=== PATIENT | male | born 1950 | race African-American/Black ===

== ENCOUNTER 2016-10-13 11:31 | Inpatient (IN) ==
[2016-10-13] MEDS ORDERED: PANTOPRAZOLE 40 MG VIAL IV STA (12:11)
[2016-10-13] MEDS ORDERED: ONDANSETRON 4 MG/2 ML VIAL IV STA (12:11)
[2016-10-13] MEDS ORDERED: SODIUM CHLORIDE 0.9% 1,000 ML IV STA (12:11)
[2016-10-13] MEDS ORDERED: METOCLOPRAMIDE 10 MG/2 ML VIAL IV STA (12:13)
--- NOTE | 2016-10-13 12:15 | Emergency Department Note ---
Arrival - Arrival Chief Complaint: GI Bleed/Rectal Stated Complaint: rectal bleed ED Nursing Triage Note: C/O HAVING RECTAL BLEEDING X 3 DAYS., STATES THE BLOOD IS DARK IN COLOR., + ABD. CRAMPING , Mode of Arrival: Ambulatory Time Seen by Provider: 10/13/16 12:11 - History of Present Illness HPI Narrative: This 66-year-old black male presents with a history of 3 days of melanotic type stools associated with intermittent cramping and low-grade nausea. The patient relates a long-standing history of several years of intermittent incidents Such as this where he will have 3 days to a week of melena which spontaneously resolves; however, he was concern by the frequency and volume of melena the last 3 days precipitating his visit today. The patient denies a history of diverticulitis, peptic ulcer disease, inflammatory bowel disease, pancreatitis, gallbladder problems, or reflux. Currently he is in no discomfort and appears quite stable. Onset (ago): day(s) (patient presents 3 days post-onset of symptoms) Consistency: constant Severity: moderate Allergies/Adverse Reactions: Allergies Allergy/AdvReac Type Severity Reaction Status Date / Time No Known Allergies Allergy Verified 10/13/16 13:00 Home Medications: Home Medications Medication Instructions Recorded Confirmed Type Atorvastatin Calcium 10 mg PO DAILY 10/13/16 10/13/16 History Carvedilol 3.125 mg PO BID 10/13/16 10/13/16 History Clopidogrel [Plavix] 75 mg PO DAILY 10/13/16 10/13/16 History Divalproex Sodium [Divalproex 500 mg PO BID 10/13/16 10/13/16 History Sodium ER] Quinapril/Hydrochlorothiazide 2 each PO DAILY 10/13/16 10/13/16 History [Quinapril-Hctz 20-12.5 mg Tab] cloNIDine TAB [Catapres Tab] 0.3 mg PO BID 10/13/16 10/13/16 History hydrALAZINE TAB [Apresoline Tab] 100 mg PO TID 10/13/16 10/13/16 History Review of System - Review of System Gastrointestinal: Present: as per HPI Medical,Surgical,& Family Hx - Medical History Cardio: History of: Cardiac Dysrhythmia, Cerebrovascular Disease, Hypertension Neurology: History of: Seizures Endocrine: History of: Dyslipidemia - Social History Smoking Status: Smoker, status unknown Frequency of Alcohol Use: None Type of Drug Use: None Exam Physical Examination: GENERAL: Well developed, well nourished thyroid black male in no acute distress. HEENT: Normocephalic. No trauma. Moist mucous membranes. EOMI. PERRLA. NECK: Supple. No adenopathy. CARDIAC: Regular. No murmurs. Heart rate 68 CHEST: Clear to auscultation. No respiratory distress. O2 sat 90% ABDOMEN: Soft. Nontender. Active bowel sounds. Benign abdomen currently EXTREMITIES: No trauma. Normal ROM. No pedal edema. SKIN: No diaphoresis. No rash. NEURO: Alert. Physiologic exam No focal deficits. Vital Signs: Vital Signs Temperature 98.3 F 10/13/16 11:43 Pulse Rate 58 L 10/13/16 12:47 Respiratory Rate 20 10/13/16 12:47 Blood Pressure 97/70 10/13/16 12:47 O2 Sat by Pulse Oximetry 100 10/13/16 12:47 Course - Reevaluation(s) Reevaluation #1: Discussed with patient the need for hospitalization given his findings and depressed hematocrit. - Consultations Consultation #1: Discussed with hospitalist service who will admit for further evaluation and treatment. Results - Labs CBC & BMP: 10/13/16 12:28 10/13/16 12:28 Labs: I have reviewed the laboratory noted the severely depressed hematocrit but otherwise grossly normal results. - Impressions EKG: Sinus bradycardia at 51 with normal WI interval and prolonged QT interval. Nonspecific ST changes. No acute injury pattern noted. - Diagnostic Findings Procedure: CT Abdomen and Pelvis: image reviewed by me, report reviewed by me ( bilateral renal cysts otherwise unremarkable) Disposition Clinical Impression: gastrointestinal hemorrhage, anemia Case discussed with: patient, patient's family Disposition: Still a Patient Condition: Guarded Time of Disposition: 14:20
[2016-10-13 12:41] LABS: Basophils % 0.2 % (0.0-0.8); Eosinophils # 0.2 10*3/uL (0.0-0.87); Eosinophils % 2.1 % (0.00-10.9); Hematocrit 22.9 VOL% (42.0-52.0); Hemoglobin 7.5 GM/DL (14.0-18.0); Immature Granulocytes % 0.3 %; Immature Granulocytes Absolute 0.03 #; Lymphocytes # 2.7 10*3/uL (1.4-4.0); Lymphocytes % 26.1 % (21.2-54.2); Mean Corpuscular HGB Conc 32.8 GM/DL (32-36); Mean Corpuscular Hemoglobin 24 PG (27-34); Mean Corpuscular Volume 73.2 FL (87-102); Mean Platelet Volume 9.7 FL (9.6-12.0); Monocytes % 10.1 % (1.7-12.7); Neutrophils # 6.3 10*3/uL (1.4-7.4); Neutrophils % 61.2 % (38.7-73.9); Platelet Count 196 10*3/uL (130-400); Red Blood Count 3.13 10*6/uL (3.8-5.5); Red Cell Distribution Width 16.5 % (9.3-17.3); White Blood Count 10.3 10*3/uL (4.5-13.71)
[2016-10-13] MEDS ORDERED: METOCLOPRAMIDE 10 MG/2 ML VIAL ONE (12:41)
[2016-10-13] MEDS ORDERED: ONDANSETRON 4 MG/2 ML VIAL ONE (12:41)
[2016-10-13] MEDS ORDERED: PANTOPRAZOLE 40 MG VIAL IV ONE ×2 (12:41→16:48)
[2016-10-13 12:56] LABS: INR 1.1; PT Patient Result 11.2 SECS; Partial Thromboplastin Time 27.9 SECS (0-40)
[2016-10-13 13:12] LABS: Alanine Aminotransferase 14 U/L (16-61); Albumin 2.7 G/DL (3.4-5.0); Alkaline Phosphatase 60 U/L (45-117); Aspartate Amino Transferase 10 U/L (0-37); Bilirubin,Total < 0.39 MG/DL (0.2-1.0); Blood Urea Nitrogen 25 MG/DL (7-18); Glucose 98 MG/DL (74-106); Osmolality,Calculated 286.1 MOS/KG (273-304); Potassium 3.4 MMOL/L (3.5-5.1); Sodium 142 MMOL/L (136-145); Total Protein 5.6 G/DL (6.4-8.3); Troponin I Only < 0.015 NG/ML (0.00-0.045)
--- NOTE | 2016-10-13 14:10 | CT Report ---
History is anemia and melena 100 cc Omni 350 utilized. No focal defects seen in the liver, spleen, pancreas, or adrenals. Pancreatic duct is within normal limits in size. There are several bilateral renal cysts measuring up to 1.5 CM the right and 3.0 CM in the left No enlarged or peroneal nodes seen. Mild sclerotic changes present Bowel is unopacified Pelvis: No free fluid or focal inflammatory changes seen. What is presumably the appendix is normal in size Impression: 1. Bilateral renal cysts 2. Mild atherosclerotic changes PROCEDURE INTERPRETED AT [facility] DEPARTMENT OF RADIOLOGY Final Report Signed by: Dr. Shae Dallas
[2016-10-13] MEDS ORDERED: SODIUM CHLORIDE 0.9% 250 ML IV PRN ×2 (14:37→14:41)
[2016-10-13] MEDS ORDERED: ONDANSETRON 4 MG/2 ML VIAL IV PRN (14:37)
[2016-10-13] MEDS ORDERED: PANTOPRAZOLE INJ 80 MG in SODIUM CHLORIDE 0.9% 100 ML IV ONE (14:41)
--- NOTE | 2016-10-13 14:47 | Hospitalist History & Physical ---
Assessment and Plan - Time spent with patient Time spent with patient: Greater than 30 minutes (1) Melena Status: Acute Current Visit: Yes (2) Anemia Status: Acute Current Visit: Yes (3) Seizure disorder Status: Acute Current Visit: Yes (4) History of stroke Status: Acute Current Visit: Yes (5) Platelet inhibition due to Plavix Status: Acute Current Visit: Yes History of Present Illness Chief complaint: melena History of present illness: Mr. Morales is a 66 year old male He has history of prior stroke on Plavix therapy along with history of hypertension seizure disorder and anemia. He takes several blood pressure medications including clonidine beta khushbu beatriz inhibitors to control his blood pressure along with hydralazine. He also takes Plavix therapy since he had a stroke 2 years ago. There is a history of anemia in the past as well. He describes history of lack tarry stools usually once a week or less often but this time he started having them more frequently and had 3 large melanotic stools. That concerned him and he came to the ED. Although his heart rate is normal he has been on a beta khushbu and his blood pressure is depressed at 80 systolic. He normally has obviously pretty high blood pressure. He denies significant abdominal pain. He's mildly tender in his epigastrium but did not endorse significant pain nausea or vomiting. He does not give any history of lower GI bleed. He did have an upper and lower endoscopy 2 Years ago according to him for possibly anemia. He does not know the results. He denies chest pain shortness of breath nausea vomiting significant abdominal pain and palpitation orthopnea or PND. He does not endorse significant weight gain or weight loss. Assessment and plan 10/13/2016: Melena with anemia symptomatic Hypotension secondary to anemia History of hypertension History of stroke on Plavix therapy Seizure disorder Patient will be given 2 units of packed red cells and started on Protonix bolus with Protonix infusion. GI has been consulted as he will require an endoscopy. His continue Plavix for now. We will also hold all his blood pressure medications as he is hypotensive. Once he gets blood in his pressure improves these can be reinitiated. He does use some marijuana but denies alcohol abuse. We will continue to observe him closely. Mechanical devices will be used for DVT prophylaxis. Home Medications Medication Instructions Recorded Confirmed Type Atorvastatin Calcium 10 mg PO DAILY 10/13/16 10/13/16 History Carvedilol 3.125 mg PO BID 10/13/16 10/13/16 History Clopidogrel [Plavix] 75 mg PO DAILY 10/13/16 10/13/16 History Divalproex Sodium [Divalproex 500 mg PO BID 10/13/16 10/13/16 History Sodium ER] Quinapril/Hydrochlorothiazide 2 each PO DAILY 10/13/16 10/13/16 History [Quinapril-Hctz 20-12.5 mg Tab] cloNIDine TAB [Catapres Tab] 0.3 mg PO BID 10/13/16 10/13/16 History hydrALAZINE TAB [Apresoline Tab] 100 mg PO TID 10/13/16 10/13/16 History Allergies Allergy/AdvReac Type Severity Reaction Status Date / Time No Known Allergies Allergy Verified 10/13/16 13:00 Medical,Surgical,& Family Hx - Medical History Cardio: History of: Cardiac Dysrhythmia, Cerebrovascular Disease, Hypertension Neurology: History of: Seizures Endocrine: History of: Dyslipidemia - Surgical History Surgical History: noncontributory - Family History Family History: Reports;: Family Hypertension - Social History Smoking Status: Never smoker Frequency of Alcohol Use: None Type of Drug Use: None, Marijuana 12 point system: reviewed and no additional remarkable complaints except as stated Exam - Constitutional Vitals: Period Temp Pulse Resp BP Sys/Richard Pulse Ox Last 24 Hr 98.3 F 58-68 17-20 97-100/58-70 98-100 Exam: Gen.: In no acute distress Head and neck: Pupils are reactive neck is supple Cardiovascular: S1-S2 with regular rate and rhythm Respiratory: Lungs are clear to auscultation and percussion Abdomen: Soft, bowel sounds are positive, very minimal epigastric tenderness is noted Extremities: No edema Neuro: Grossly intact Results - Labs CBC & BMP: 10/13/16 12:28 10/13/16 12:28 Lab Results: I have reviewed the past 24 hour labs Quality Measures - VTE Contraindication to Pharmacological VTE Prophylaxis: Active Bleeding
[2016-10-13 16:59] LABS: Calcium 7.8 MG/DL (8.5-10.1); Osmolality,Calculated 290.7 MOS/KG (273-304); Potassium 3.4 MMOL/L (3.5-5.1)
--- NOTE | 2016-10-13 17:15 | Gastrointestinal Consult Note ---
Assessment and Plan - Time spent with patient Time spent with patient: Greater than 30 minutes (1) Melena Status: Acute (2) Anemia Status: Acute (3) Other specified counseling Status: Acute History of Present Illness History of present illness: Mr. Morales is a 66 year old male Home Medications Medication Instructions Recorded Confirmed Type Atorvastatin Calcium 10 mg PO DAILY 10/13/16 10/13/16 History Carvedilol 3.125 mg PO BID 10/13/16 10/13/16 History Divalproex Sodium [Divalproex 500 mg PO BID 10/13/16 10/13/16 History Sodium ER] Quinapril/Hydrochlorothiazide 2 each PO DAILY 10/13/16 10/13/16 History [Quinapril-Hctz 20-12.5 mg Tab] cloNIDine TAB [Catapres Tab] 0.3 mg PO BID 10/13/16 10/13/16 History hydrALAZINE TAB [Apresoline Tab] 100 mg PO TID 10/13/16 10/13/16 History Allergies Allergy/AdvReac Type Severity Reaction Status Date / Time No Known Allergies Allergy Verified 10/13/16 13:00 Medical,Surgical,& Family Hx - Medical History Cardio: History of: Cardiac Dysrhythmia (irregular heart beat), Cerebrovascular Disease, Hypertension Neurology: History of: Cerebrovascular Accident (2011), Seizures Endocrine: History of: Dyslipidemia No history of: Diabetes Mellitus (IDDM) Renal: History of: Renal Problems (urinary frequency) Gastrointestinal: History of: Hemorrhoids Musculoskeletal: History of: Musculoskeletal Problems (chronic lower back pain) Hematology: History of: Anemia - Family History Family History: Reports;: Family Hypertension - Social History Smoking Status: Never smoker Frequency of Alcohol Use: None Type of Drug Use: None, Marijuana Exam - Constitutional Vitals: Period Temp Pulse Resp BP Sys/Richard Pulse Ox Last 24 Hr 97.7 F-97.7 F 54-61 18-20 108-110/55-76 100-100 Results - Labs CBC & BMP: 10/17/16 04:57 10/17/16 04:57 Quality Measures - VTE Contraindication to Pharmacological VTE Prophylaxis: Active Bleeding Specialty Discharge - Follow Up or Referrals Follow up with: Bulmaro Foster DO [Physician] - 10/23/16 8:00 am Note Addendum: PLEASE NOTE -- automatic citation of patient information is unavoidable in this electronic note. I have made a reasonable effort to review the information cited , but it is not a part of my evaluation, impression, or recommendation unless specifically discussed in the dictated text that follows. As well, voice recognition software was used in the creation of this clinical note. Reasonable effort was made to identify and correct gross errors. Despite proofreading, errors in tire bladder maker may be present, including nonsense verbiage at times. If you encounter such an error, please contact me at for discussion and correction. -- Aisha Chief complaint: melena History of present illness: this is a new patient, a 66-year-old male seen by consultation for evaluation of suspected upper gastrointestinal bleeding and symptomatic anemia. The patient is admitted to the hospitalist service with a primary diagnosis of melena. The patient reports melanic stool over several weeks with increasing frequency but today reports at least three large melanic over the past couple of days. He has had no nausea or vomiting and specifically denies hematochezia. He is unaware of any past history of gastrointestinal bleeding or peptic ulcer disease. He is not a regular user of nonsteroidal anti- inflammatory drugs. He is unaware of any prior history of liver disease. He is eating and drinking normally, maintaining nutrition and hydration. Patient denies fever, chills, night sweats, rigors, headache, dizziness, neck pain, visual changes, redness of the eyes, dysphagia, odynophagia, difficulty chewing, chest pain, shortness of breath, weight loss, nausea, vomiting, regurgitation, hematemesis, diarrhea, proctalgia, constipation, dysuria, skin changes, temperature regulation issues, flushing, easy bleeding/bruising, musculoskeletal pain, mental status change, numbness/weakness in the extremities , yellowing of the eyes/skin, cutaneous eruptions, allergies to food or drug, family history of gastrointestinal cancer and colon polyps, and other complaints in general. Review of systems: 12 point review of systems was negative except as documented above. Outpatient medications: Lipitor, carvedilol, Plavix, divalproex, Quinapril/ hydrochlorothiazide, clonidine, hydralazine Inpatient medications: Lipitor, ciprofloxacin, divalproex, Zofran, Protonix, normal saline infusion Past Medical History: cardiac dysrhythmia, cerebrovascular disease hypertension , seizures, hyperlipidemia Social history: negative tobacco. Negative alcohol. Positive marijuana use Family history: no gastrointestinal cancers Physical examination: Vital Signs: Current vital signs reviewed and documented above. General Appearance: well-appearing. Not acutely ill. Head: Normocephalic. Neck: Palpation of the neck revealed no abnormalities. Eyes: No scleral icterus. No scleral injection. No conjunctival pallor. Oral Cavity: Odor of breath was normal. No drooling was observed. Lips showed no abnormalities. Floor of the mouth showed no abnormalities. Pharynx: Oropharynx was normal. Lungs: Respiration rhythm and depth was normal. Cardiovascular: Heart rate and rhythm were normal. No murmurs were appreciated. Abdomen: abdomen was not distended. Abdominal palpation revealed no tenderness and no hepatosplenomegaly. Ascites was not discovered. Abdominal auscultation revealed positive bowel sounds. Musculoskeletal System: Musculoskeletal system was grossly normal. Neurological: level of consciousness was normal. Speech was normal. Skin: General appearance was normal. Color and pigmentation were normal. No skin lesions. Laboratory: white blood count 10.3, hemoglobin 7.5, hematocrit 23.1, platelets 196, INR 1.1, PT 11.2, ALT 14, AST 10, alkaline phosphatase 60, total bilirubin 0.4, albumin 2.7, total protein 5.6 Radiology: CT of the abdomen and pelvis today reveals evidence of atherosclerotic change but no other abdominal pathology and specifically no evidence of chronic liver disease Impressions: 1. Melena -- the differential diagnosis includes peptic ulcer disease, gastritis /esophagitis generally, arteriovenous malformation, colon polyps (including cancer), and right-sided lower gastrointestinal bleeding. I recommend aggressive crystalloid resuscitation in addition to transfusion as indicated. I recommend serial hemoglobin and hematocrit monitoring with further transfusion as indicated. I recommend intravenous proton pump inhibitor. Patient will need upper endoscopy with timing dependent on clinical progress, most likely tomorrow. If there is no finding on upper endoscopy, the patient will need colonoscopy, possibly during this admission. 2. Acute blood loss anemia -- as discussed, this is likely due to gastrointestinal bleeding. I agree with transfusion and recommend continued monitoring with further transfusion as indicated. 3. Other specified counseling: The patient was seen for greater than 30 minutes. The patient was counseled for greater than 50% of this time regarding differential diagnosis, likely diagnosis, diagnostic and therapeutic alternatives, risks/benefits/alternatives of medications and procedures, and plan of care generally. The patient expressed understanding and wishes to proceed. Recommendations: -- aggressive crystalloid resuscitation -- transfusion as indicated -- serial hemoglobin and hematocrit monitoring -- agree with intravenous proton pump inhibitor -- upper endoscopy with timing dependent on clinical progress, likely Friday -- colonoscopy as indicated with timing dependent on clinical progress -- patient may need video capsule endoscopy if upper and lower endoscopy is nondiagnostic -- thank you for consultation. We will continue to follow with you.
[2016-10-13] MEDS: PANTOPRAZOLE INJ 200 MG in SODIUM CHLORIDE 0.9% 250 ML IV SCH (18:01)
[2016-10-13] MEDS: CIPROFLOXACIN INJ 400 MG in PREMIX 1 EACH IV SCH (21:09)
[2016-10-13] MEDS: DIVALPROEX ER 500 MG TABLET PO SCH (21:13)
[2016-10-13] MEDS: DEXTROSE 5% NACL 0.45% 1,000 ML IV SCH ×2 (23:08→23:09)
[2016-10-14] MEDS: DEXTROSE 5% NACL 0.45% 1,000 ML IV SCH ×2 (04:36→21:36)
--- NOTE | 2016-10-14 08:15 | EKG Report ---
Stationary ECG Study [facility] ER Test Date: 10/13/2016 12:48:34 PM Pat Name: Dewayne CANALES Department: Room: 236 Gender: M [employer]: DARIO : 1950 Requested by: Sanjay Bonds Order Number: [id number] Reading MD: CHARU FALK Intervals [place] Rate: 51 P: 69 IN: 164 QRS: 32 QRSD: 102 T: -36 QT: 489 QTc: 467 Interpretive Statements SINUS BRADYCARDIA NONSPECIFIC T-WAVE ABNORMALITY PROLONGED QT INTERVAL Electronically Signed On 10-14-16 08:48:26 CLINIC ADMINISTRATOR by CHARU FALK [email or web address]
--- NOTE | 2016-10-14 09:47 | Hospitalist Progress Note ---
Assessment and Plan (1) Acute upper gastrointestinal bleeding Status: Acute Assessment and plan: - gastroenterology consulted, patient will undergo an upper endoscopy today to evaluate for source of GI bleeding - will restart blood pressure medications if blood pressrure increases, blood pressure was low at admission - hold anticoagulants and antiplatelets - monitor blood counts serially, transfuse as needed - continue protonix infusion Current Visit: Yes (2) Acute blood loss anemia Status: Acute Current Visit: Yes (3) Melena Status: Acute Current Visit: Yes (4) Platelet inhibition due to Plavix Status: Acute Current Visit: Yes (5) Seizure disorder Status: Acute Current Visit: Yes Hospitalist: Subjective Interval history: The patient is a 66 year old male admitted to the hospital with acute blood loss anemia due to a likely upper GI bleed. The patient complains of a 3 day history of melena prior to presenting to the hospital. He was transfused two units of pRBCs yesterday. He denies any bowel movements today. He has not had any abdominal pain, nausea, vomiting or shortness of breath. The patient is scheduled to have an EGD today. Exam - Constitutional Vitals: Period Temp Pulse Resp BP Sys/Richard Pulse Ox Last 24 Hr 97.7 F-98.9 F 54-86 18-20 108-144/55-93 98-100 Exam: General appearance: chronically ill appearing male, alert - Head Head exam: Present: normal inspection - Eye Eye exam: Present: EOMI. Absent: periorbital swelling - ENT ENT exam: Present: normal exam - Neck Neck exam: Present: normal inspection - Respiratory Respiratory exam: Present: clear to auscultation bilaterally. Absent: rales, rhonchi - Cardiovascular Cardiovascular exam: Present: regular rate and rhythm. Absent: systolic murmur - GI/Abdominal GI/Abdominal exam: Present: normal bowel sounds, tenderness, soft. Absent: guarding - Extremities Exam Extremities exam: Present: normal inspection, full ROM - Back Exam Back exam: Present: normal inspection - Neurological Exam Neurological exam: Present: alert, oriented X3 - Psychiatric Psychiatric exam: Present: normal affect - Skin Skin exam: Present: normal color Results - Labs CBC & BMP: 10/14/16 15:50 10/13/16 16:18 Lab Results: I have reviewed the past 24 hour labs Quality Measures - VTE Contraindication to Pharmacological VTE Prophylaxis: Active Bleeding
[2016-10-14] MEDS: CIPROFLOXACIN INJ 400 MG in PREMIX 1 EACH IV SCH ×2 (10:50→21:46)
[2016-10-14] MEDS ORDERED: LIDOCAINE 2% 5 ML VIAL ONE (14:01)
[2016-10-14] MEDS ORDERED: PROPOFOL 200 MG/20 ML VIAL IV ONE (14:01)
--- NOTE | 2016-10-14 14:11 | History and Physical Update ---
History and Physical Update - Physical Exam Mental Status: alert and oriented Heart: regular rate and rhythm Lung: clear to auscultation Abdomen: within normal limits Vitals: within normal limits History and Physical Changes: 66-year-old male was admitted with GI bleeding with anemia. He has been having recent melena. He denies weight loss, abdominal pain or nausea.
--- NOTE | 2016-10-14 14:12 | Operative Note ---
Date of procedure: 10/14/16 Pre-op diagnosis: GI bleeding with melena Procedure: Procedure: Esophagogastroduodenoscopy Brief clinical abstract: Patient is a 66-year-old admitted with GI bleeding with melena over the last 2 or 3 days. He had hemoglobin of 7 on admission and has required transfusion of 2 units packed red blood cells. Indication for procedure: GI bleeding with melena Endoscopic findings:[After informed consent was obtained, the patient was placed in the left lateral decubitus position. The gastroscope was inserted in the upper esophagus under direct vision with no resistance encountered. Esophageal mucosa appeared normal with squamocolumnar junction sharply demarcated above a 1-2 cm hiatal hernia. The endoscope was advanced in the stomach which was carefully examined including retroflexed view of the cardia and fundus with no abnormality seen. The pyloric channel, duodenal bulb, second and third portion of the duodenum were normal. The endoscope was withdrawn and patient appeared to tolerate the procedure well. Impression: Small hiatal hernia-otherwise normal EGD Recommendations: Colonoscopy Anesthesia: MAC Surgeon / Physician: Dominguez Cottrell Estimated blood loss: none Specimens: none sent Condition: stable Disposition: post procedure unit Results - Labs CBC & BMP: 10/14/16 08:31 10/13/16 16:18 Discharge Plan - Discharge Medications No Action cloNIDine TAB [Catapres Tab] 0.3 mg PO BID Divalproex Sodium [Divalproex Sodium ER] 500 mg PO BID Carvedilol 3.125 mg PO BID Quinapril/Hydrochlorothiazide [Quinapril-Hctz 20-12.5 mg Tab] 2 each PO DAILY hydrALAZINE TAB [Apresoline Tab] 100 mg PO TID Atorvastatin Calcium 10 mg PO DAILY Clopidogrel [Plavix] 75 mg PO DAILY - Follow Up or Referral - Forms/Instructions
--- NOTE | 2016-10-14 14:22 | Anesthesia ---
Anesthesia Post OP - Post Ansesthetic Evaluation Patient seen in post op: Yes Resp: within normal limits CV: within normal limits Mental: within normal limits Temp: within normal limits [id number]: within normal limits Nausea and Vomiting: within normal limits Pain: within normal limits
[2016-10-14] MEDS ORDERED: LEVALBUTEROL 0.63 MG/3 ML NEB RESP TX STA (14:33)
[2016-10-14] MEDS ORDERED: hydrALAZINE 20 MG/1 ML VIAL IV ONE (14:51)
[2016-10-14] MEDS ORDERED: LABETALOL 20 MG/4 ML SYRINGE IV ONE (15:06)
[2016-10-14] MEDS ORDERED: POLYETHYLENE GLYCOL POWDER 255 GM BOTTLE PO ONE (18:00)
[2016-10-14] MEDS: hydroCHLOROthiazide 25 MG TABLET PO SCH (18:04)
[2016-10-14] MEDS: CARVEDILOL 3.125 MG TABLET PO SCH ×2 (18:04→21:43)
[2016-10-14] MEDS: DIVALPROEX ER 500 MG TABLET PO SCH ×2 (21:35→21:52)
[2016-10-14] MEDS: ATORVASTATIN 10 MG TABLET PO SCH (21:46)
[2016-10-15 02:49] LABS: Basophils % 0.1 % (0.0-0.8); Eosinophils # 0.1 10*3/uL (0.0-0.87); Eosinophils % 1.4 % (0.00-10.9); Hematocrit 20.7 VOL% (42.0-52.0); Immature Granulocytes % 0.5 %; Immature Granulocytes Absolute 0.04 #; Lymphocytes # 2.1 10*3/uL (1.4-4.0); Lymphocytes % 24.8 % (21.2-54.2); Mean Corpuscular HGB Conc 33.8 GM/DL (32-36); Mean Corpuscular Hemoglobin 26 PG (27-34); Mean Corpuscular Volume 77.5 FL (87-102); Mean Platelet Volume 10.1 FL (9.6-12.0); Monocytes # 0.9 10*3/uL (0.11-0.8); Neutrophils # 5.3 10*3/uL (1.4-7.4); Neutrophils % 62.2 % (38.7-73.9); Platelet Count 156 10*3/uL (130-400); Red Blood Count 2.67 10*6/uL (3.8-5.5); White Blood Count 8.5 10*3/uL (4.5-13.71)
[2016-10-15 03:17] LABS: Osmolality,Calculated 290.4 MOS/KG (273-304); Potassium 3.2 MMOL/L (3.5-5.1)
[2016-10-15] MEDS ORDERED: MAGNESIUM CITRATE 300 ML BOTTLE PO ONE (06:00)
[2016-10-15] MEDS ORDERED: SODIUM CHLORIDE 0.9% 250 ML IV PRN (07:39)
[2016-10-15] MEDS: ATORVASTATIN 10 MG TABLET PO SCH (10:23)
[2016-10-15] MEDS: hydroCHLOROthiazide 25 MG TABLET PO SCH (10:23)
[2016-10-15] MEDS: DIVALPROEX ER 500 MG TABLET PO SCH ×2 (10:23→21:52)
[2016-10-15] MEDS: CARVEDILOL 3.125 MG TABLET PO SCH ×2 (10:24→21:52)
[2016-10-15] MEDS: CIPROFLOXACIN INJ 400 MG in PREMIX 1 EACH IV SCH ×2 (10:25→21:52)
--- NOTE | 2016-10-15 10:59 | Hospitalist Progress Note ---
Assessment and Plan (1) HTN (hypertension) Status: Acute Assessment and plan: mildly HTN with SBP 155; will cont current medical regimen since currently bleeding; will restart home hydralazine 100 mg TID once bleeding stopped Current Visit: Yes (2) Lower GI bleed Status: Acute Assessment and plan: HH dropped down, currently on 2 units of RBCs, 2 maroon color stool this am; waiting for colonoscopy Current Visit: Yes (3) Acute blood loss anemia Status: Acute Assessment and plan: transfusin with RBCs ; HH q 6 hrs Current Visit: Yes (4) Anemia Status: Acute Assessment and plan: due to lower GI bleed; monitor HH q 6 hrs; cont to transfuse to keep Hb above 7 Current Visit: Yes (5) History of stroke Status: Acute Assessment and plan: plavix and asa are on hold due to active bleeding , will resume once ok with GI Current Visit: Yes (6) Melena Status: Acute Current Visit: Yes Hospitalist: Subjective Interval history: 66 yo AAM present with melanotic aubrey for 3 days and weakness. pt was anemia in ER , s/p 2 units RBCs transfused. He underwent EGD on 10/14- smal hiatal hernia. Pt has a prior h/o lower GI bleed, last colonoscopy was 4 yeasr ago , normal. Today, he has 2 maroon color liquid stools in am. HH dropped down, currently transfusing with 2 units RBCS. Plain is colonoscopy today Exam - Constitutional Vitals: Period Temp Pulse Resp BP Sys/Richard Pulse Ox Last 24 Hr 96 F-100.0 F 62-111 15-32 114-171/70-129 94-100 General appearance: normal weight - Head Head exam: Present: normal inspection, normocephalic, atraumatic - Eye Eye exam: Present: EOMI Pupils: Present: NIRMALA - Neck Neck exam: Present: normal inspection - Respiratory Respiratory exam: Present: clear to auscultation bilaterally - Cardiovascular Cardiovascular exam: Present: regular rate and rhythm - GI/Abdominal GI/Abdominal exam: Present: hyperactive bowel sounds - Extremities Exam Extremities exam: Present: normal inspection - Neurological Exam Neurological exam: Present: motor sensory deficit (left UE and LE weakness fromprior stroke ) - Psychiatric Psychiatric exam: Present: normal affect - Skin Skin exam: Present: normal color, warm Results - Labs CBC & BMP: 10/15/16 08:20 10/15/16 02:41 Quality Measures - VTE Contraindication to Pharmacological VTE Prophylaxis: Active Bleeding
[2016-10-15] MEDS ORDERED: LIDOCAINE 2% 5 ML VIAL ONE (12:27)
--- NOTE | 2016-10-15 12:29 | History and Physical Update ---
History and Physical Update - Physical Exam Mental Status: alert and oriented Heart: regular rate and rhythm Lung: clear to auscultation Abdomen: within normal limits Vitals: within normal limits History and Physical Changes: 66-year-old male presents for evaluation of lower GI bleeding.
--- NOTE | 2016-10-15 12:48 | Operative Note ---
Date of procedure: 10/15/16 Pre-op diagnosis: Lower GI bleeding Procedure: Procedure note: Colonoscopy Physician: Dr. Joce Cottrell Brief clinical abstract: Patient is a 66-year-old male admitted with GI bleeding. He is being transfused with his fourth unit of packed red blood cells. He initially had black stools but yesterday afternoon had onset of bright red and maroon hematochezia. Upper endoscopy was negative yesterday. Endoscopic findings: After informed consent was obtained, the patient was placed in the left lateral decubitus position. Digital rectal exam was performed with no palpable abnormalities felt. Pediatric videocolonoscope was inserted into the rectum and advanced to the cecum without difficulty. Retroflex view within the cecum was performed back to the level of the hepatic flexure. The endoscope was advanced back to the cecum and on withdrawal colonic mucosa was carefully examined. Bowel prep was of excellent quality. I attempted to intubate his terminal ileum without success. No blood was noted in the colon. Withdrawal time was over 6 minutes duration. Vascular pattern throughout the colon appeared normal. No polyps were seen. A couple of small diverticuli were noted in the ascending colon and a few in the sigmoid colon with no bleeding stigmata noted. The endoscope was withdrawn in the rectum with retroflex view showing 1 moderate sized internal hemorrhoid. The endoscope was then removed. He appeared to tolerate the procedure well. Impression: #1 scattered diverticulosis coli-could be source of bleeding #2 internal hemorrhoid Plan: Continue to monitor with serial hemoglobins and blood product support. Would plan GI bleeding scan if had recurrent active bleeding. Anesthesia: MAC Surgeon / Physician: Dominguez Cottrell Estimated blood loss: none Specimens: none sent Condition: stable Disposition: post procedure unit Results - Labs CBC & BMP: 10/15/16 08:20 10/15/16 02:41 Discharge Plan - Discharge Medications No Action cloNIDine TAB [Catapres Tab] 0.3 mg PO BID Divalproex Sodium [Divalproex Sodium ER] 500 mg PO BID Carvedilol 3.125 mg PO BID Quinapril/Hydrochlorothiazide [Quinapril-Hctz 20-12.5 mg Tab] 2 each PO DAILY hydrALAZINE TAB [Apresoline Tab] 100 mg PO TID Atorvastatin Calcium 10 mg PO DAILY Clopidogrel [Plavix] 75 mg PO DAILY - Follow Up or Referral - Forms/Instructions
--- NOTE | 2016-10-15 12:59 | Anesthesia ---
Anesthesia Post OP - Post Ansesthetic Evaluation Patient seen in post op: Yes Resp: within normal limits CV: within normal limits Mental: within normal limits Temp: within normal limits [id number]: within normal limits Nausea and Vomiting: within normal limits Pain: within normal limits
[2016-10-15 15:00] LABS: Hematocrit 26.1 VOL% (42.0-52.0); Hemoglobin 8.7 GM/DL (14.0-18.0)
[2016-10-15 17:05] LABS: Hematocrit 23.3 VOL% (42.0-52.0); Hemoglobin 7.8 GM/DL (14.0-18.0)
[2016-10-15] MEDS: DEXTROSE 5% NACL 0.45% 1,000 ML IV SCH (21:53)
[2016-10-15 23:41] LABS: Hemoglobin 7.7 GM/DL (14.0-18.0)
[2016-10-16 06:50] LABS: Hematocrit 25.6 VOL% (42.0-52.0); Hemoglobin 8.3 GM/DL (14.0-18.0)
[2016-10-16 07:32] LABS: Calcium 8.2 MG/DL (8.5-10.1); Osmolality,Calculated 291.3 MOS/KG (273-304); Potassium 3.5 MMOL/L (3.5-5.1)
--- NOTE | 2016-10-16 09:24 | Hospitalist Progress Note ---
Assessment and Plan (1) HTN (hypertension) Status: Acute Assessment and plan: mildly HTN with SBP 165; will restart home hydralazine but in lower dose 50 mg TID will monitor Current Visit: Yes (2) Lower GI bleed Status: Acute Assessment and plan: HH is stable 8.3/25.6 s/p 4 units RBCs no active bleeding since yesterday colonoscopy with diverticulitis coli and internal hemorrhoids if rebleeds - bleeding scan cont to hold plavix if HH stable tomorrow and no bleed will resume plavix Current Visit: Yes (3) Acute blood loss anemia Status: Acute Assessment and plan: due to lower GI bleed HH is stable cont to monitor s/p 4 units RBCs transfused Current Visit: Yes (4) Anemia Status: Acute Assessment and plan: HH stable cont to monitor cont to hold plavix Current Visit: Yes (5) History of stroke Status: Acute Assessment and plan: cont to hold plavix due to recent lower GI bleed if HH stable tomorrow and no bleed will resume plavix Current Visit: Yes (6) Melena Status: Acute Assessment and plan: monitor HH and s/s of active bleeding Current Visit: Yes Hospitalist: Subjective Interval history: 66 yo AAM present with melanotic stool for 3 days and weakness. pt was anemia in ER , s/p 4 units RBCs transfused. He underwent EGD on 10/14- smal hiatal hernia. Pt has a prior h/o lower GI bleed, last colonoscopy was 4 yeasr ago , normal. Yesterday morning, he has 2 maroon color liquid stools in am. HH dropped down to 04/17. Today: alert, oriented, no distress note, s/p colonoscopy on 10/15 - scattered diverticulosis coli-could be source of bleeding and internal hemorrhoid. If rebleed- will do bleeding scan. HH stable since yesterday. Denies any bright blood in stool. Exam - Constitutional Vitals: Period Temp Pulse Resp BP Sys/Richard Pulse Ox Last 24 Hr 97.5 F-98.9 F 55-74 14-20 97-162/65-113 98-100 General appearance: normal weight, no acute distress - Head Head exam: Present: normal inspection, normocephalic, atraumatic - Eye Eye exam: Present: EOMI Pupils: Present: NIRMALA - ENT ENT exam: Present: normal exam - Neck Neck exam: Present: normal inspection - Respiratory Respiratory exam: Present: clear to auscultation bilaterally - Cardiovascular Cardiovascular exam: Present: regular rate and rhythm - GI/Abdominal GI/Abdominal exam: Present: normal bowel sounds, soft - Extremities Exam Extremities exam: Present: normal inspection, normal capillary refill - Neurological Exam Neurological exam: Present: alert, oriented X3 - Psychiatric Psychiatric exam: Present: normal affect, normal mood - Skin Skin exam: Present: normal color, warm Results - Labs CBC & BMP: 10/16/16 05:31 10/16/16 05:31 Quality Measures - VTE Contraindication to Pharmacological VTE Prophylaxis: Active Bleeding
[2016-10-16] MEDS: CIPROFLOXACIN INJ 400 MG in PREMIX 1 EACH IV SCH ×2 (09:42→22:16)
[2016-10-16] MEDS: hydroCHLOROthiazide 25 MG TABLET PO SCH (09:42)
[2016-10-16] MEDS: DIVALPROEX ER 500 MG TABLET PO SCH ×2 (09:42→22:17)
[2016-10-16] MEDS: CARVEDILOL 3.125 MG TABLET PO SCH ×2 (09:42→22:17)
[2016-10-16] MEDS: ATORVASTATIN 10 MG TABLET PO SCH (09:43)
--- NOTE | 2016-10-16 10:35 | Gastrointestinal Progress Note ---
Assessment and Plan (1) Lower GI bleed Status: Acute Assessment and plan: 10/16-No further bleeding. No c/o pain. Hgb improved at 8.3. Tolerating diet. Continue to monitor bleeding/HH. Plan and addendum to follow by Dr Cottrell. Current Visit: Yes Gastroenterology - PN: Subj Interval history: CC: Lower GI bleed Pt is awake, sitting up in bed. States he is feeling better today. He has had no further bleeding since yesterday morning. Had a bowel movement after the c- scope yesterday and states it was just clear water. He is tolerating his diet well at this time. Abdomen is soft, nontender. Hgb is up today at 8.3. Noted attending to restart Plavix tomorrow if hemoglobin remains up and no further bleeding. ROS: Denies SOB or chest pain Exam (Progress Note) - Constitutional Vitals: Period Temp Pulse Resp BP Sys/Richard Pulse Ox Last 24 Hr 97.5 F-98.9 F 55-74 14-20 97-162/65-113 98-100 General appearance: normal weight, no acute distress - Head Head exam: Present: normal inspection, normocephalic - Eye Eye exam: Present: other (lids and conjunctiva unremarkable). Absent: scleral icterus - ENT ENT exam: Present: normal exam, normal oropharynx - Neck Neck exam: Present: normal inspection - Respiratory Respiratory exam: Present: clear to auscultation bilaterally. Absent: rales, rhonchi, wheezes - Cardiovascular Cardiovascular exam: Present: regular rate and rhythm. Absent: diastolic murmur , JVD, systolic murmur - GI/Abdominal GI/Abdominal exam: Present: normal bowel sounds, soft. Absent: ascites, distended, mass, organomegaly, tenderness - Extremities Exam Extremities exam: Present: normal inspection, full ROM - Back Exam Back exam: Present: normal inspection - Neurological Exam Neurological exam: Present: alert, oriented X3 - Psychiatric Psychiatric exam: Present: normal affect, normal mood - Skin Skin exam: Present: normal color, warm, dry Results - Labs CBC & BMP: 10/16/16 05:31 10/16/16 05:31 Lab Results: I have reviewed the past 24 hour labs
[2016-10-16 16:44] LABS: Hematocrit 24.5 VOL% (42.0-52.0); Hemoglobin 8.2 GM/DL (14.0-18.0)
[2016-10-16] MEDS ORDERED: PANTOPRAZOLE 40 MG VIAL IV SCH (21:00)
[2016-10-16] MEDS: SODIUM CHLORIDE 0.45% 1,000 ML IV SCH ×2 (22:14→22:49)
[2016-10-17 05:50] LABS: Hemoglobin 8.6 GM/DL (14.0-18.0)
[2016-10-17 05:52] LABS: Basophils % 0.3 % (0.0-0.8); Eosinophils # 0.3 10*3/uL (0.0-0.87); Eosinophils % 3.8 % (0.00-10.9); Hematocrit 25.5 VOL% (42.0-52.0); Hemoglobin 8.4 GM/DL (14.0-18.0); Immature Granulocytes % 0.2 %; Immature Granulocytes Absolute 0.02 #; Lymphocytes # 2.1 10*3/uL (1.4-4.0); Mean Corpuscular HGB Conc 32.9 GM/DL (32-36); Mean Corpuscular Hemoglobin 27 PG (27-34); Mean Corpuscular Volume 80.4 FL (87-102); Mean Platelet Volume 10.2 FL (9.6-12.0); Monocytes % 12.1 % (1.7-12.7); Neutrophils # 5.1 10*3/uL (1.4-7.4); Neutrophils % 59.6 % (38.7-73.9); Platelet Count 183 10*3/uL (130-400); Red Blood Count 3.17 10*6/uL (3.8-5.5); Red Cell Distribution Width 18.5 % (9.3-17.3); White Blood Count 8.6 10*3/uL (4.5-13.71)
[2016-10-17 06:23] LABS: Calcium 8.1 MG/DL (8.5-10.1); Osmolality,Calculated 294.3 MOS/KG (273-304); Potassium 3.6 MMOL/L (3.5-5.1)
[2016-10-17] MEDS: SODIUM CHLORIDE 0.45% 1,000 ML IV SCH (07:35)
[2016-10-17] MEDS: DEXTROSE 5% NACL 0.45% 1,000 ML IV SCH (07:39)
[2016-10-17] MEDS: PANTOPRAZOLE INJ 200 MG in SODIUM CHLORIDE 0.9% 250 ML IV SCH (07:40)
[2016-10-17] MEDS: ATORVASTATIN 10 MG TABLET PO SCH (09:29)
[2016-10-17] MEDS: CARVEDILOL 3.125 MG TABLET PO SCH (09:29)
[2016-10-17] MEDS: CIPROFLOXACIN INJ 400 MG in PREMIX 1 EACH IV SCH (09:30)
[2016-10-17] MEDS: hydroCHLOROthiazide 25 MG TABLET PO SCH (09:30)
[2016-10-17] MEDS: DIVALPROEX ER 500 MG TABLET PO SCH (09:30)
--- NOTE | 2016-10-17 09:53 | Gastrointestinal Progress Note ---
Assessment and Plan (1) Lower GI bleed Status: Acute Assessment and plan: 10/17-Recommendations to hold plavix x 1 week. Hgb holding at 8.6. No further bleeding. Plan and addendum to follow by Dr Cottrell. 10/16-No further bleeding. No c/o pain. Hgb improved at 8.3. Tolerating diet. Continue to monitor bleeding/HH. Plan and addendum to follow by Dr Cottrell. Current Visit: Yes Gastroenterology - PN: Subj Interval history: CC: Lower GI bleed Pt is awake, alert, sitting up in bed. States that he feels well today. Denies any abdominal pain. He has had no further bleeding. Hgb stable at 8.6. He is tolerating his diet well at present. Abdomen is soft, nontender. ROS: Denies SOB or chest pain Exam (Progress Note) - Constitutional Vitals: Period Temp Pulse Resp BP Sys/Richard Pulse Ox Last 24 Hr 97.6 F-98.4 F 54-93 18-20 139-163/64-96 97-100 - Other Additional findings: General appearance: normal weight, no acute distress - Head Head exam: Present: normal inspection, normocephalic - Eye Eye exam: Present: other (lids and conjunctiva unremarkable). Absent: scleral icterus - ENT ENT exam: Present: normal exam, normal oropharynx - Neck Neck exam: Present: normal inspection - Respiratory Respiratory exam: Present: clear to auscultation bilaterally. Absent: rales, rhonchi, wheezes - Cardiovascular Cardiovascular exam: Present: regular rate and rhythm. Absent: diastolic murmur , JVD, systolic murmur - GI/Abdominal GI/Abdominal exam: Present: normal bowel sounds, soft. Absent: ascites, distended, mass, organomegaly, tenderness - Extremities Exam Extremities exam: Present: normal inspection, full ROM - Back Exam Back exam: Present: normal inspection - Neurological Exam Neurological exam: Present: alert, oriented X3 - Psychiatric Psychiatric exam: Present: normal affect, normal mood - Skin Skin exam: Present: normal color, warm, dry Results - Labs CBC & BMP: 10/17/16 04:57 10/17/16 04:57 Lab Results: I have reviewed the past 24 hour labs
--- NOTE | 2016-10-17 11:15 | Discharge Summary ---
<Shruthi Amaya - Last Filed: 10/17/16 11:10> Hospital Course - Hospital Course Hospital Course: Mr. Morales was admitted on 10/13/16 with melanotic stools, on plavix. He is on plavix for a previous stroke. His H/H was 7/23 on admission and required 4 units of PRBC's consistent with acute blood loss anemia. Dr. Leonard with GI was consulted and saw Mr. Morales on 10/13. BP initially was on the low side on admission, so his BP medications were held, along with his anticoagulants and antiplatelets. Protonix infusion was also initiated. Dr. Cottrell took Mr. Morales to the scope lab on 10/14 for EGD that showed "small hiatal hernia- otherwise normal". Given normal upper endoscopy, he was taken back to scope lab on 10/15 for Colonoscopy. This showed "scattered diverticulosis- could be source of bleeding; and internal hemorrhoid". We continued to follow his H/H closely, drawing them every 6 hours. He did begin to have some hypertension after being off of his BP meds for a couple of days and his hydralazine was restarted but at 50 mg PO TID. On 10/16, Dr. Cottrell suggested holding his Plavix for another week given the significance of Mr. Morales's GI bleed. Today, his H/H is stable at 8/26 and his vitals are good. He will be discharged back home on appropriate medications and follow up. - Time spent with patient Time with patient DS: Greater than 30 minutes (due to plan, doc and med rec.) Diagnosis - Discharge Diagnosis (1) Lower GI bleed Status: Acute (2) Acute blood loss anemia Status: Acute (3) HTN (hypertension) Status: Acute (4) History of stroke Status: Acute (5) Platelet inhibition due to Plavix Status: Acute Discharge Plan - Discharge Data Disposition: Disch To Home/Self Care - Discharge Medications Continue cloNIDine TAB [Catapres Tab] 0.3 mg PO BID Divalproex Sodium [Divalproex Sodium ER] 500 mg PO BID Carvedilol 3.125 mg PO BID Quinapril/Hydrochlorothiazide [Quinapril-Hctz 20-12.5 mg Tab] 2 each PO DAILY hydrALAZINE TAB [Apresoline Tab] 100 mg PO TID Atorvastatin Calcium 10 mg PO DAILY Discontinued Clopidogrel [Plavix] 75 mg PO DAILY - Follow Up or Referral - Forms/Instructions Exam - Constitutional Vitals: Period Temp Pulse Resp BP Sys/Richard Pulse Ox Last 24 Hr 97.6 F-98.4 F 54-93 18-20 141-163/78-101 98-100 Discharge Results Labs on day of discharge: Labs from last 24 hours 10/17/16 10/17/16 10/17/16 04:57 04:57 04:57 WBC 8.6 RBC 3.17 L Hgb 8.6 L 8.4 L Hct 26.0 L 25.5 L MCV 80.4 L MCH 27 MCHC 32.9 RDW 18.5 H Plt Count 183 MPV 10.2 Neut % (Auto) 59.6 Lymph % (Auto) 24.0 [place] % (Auto) 12.1 Eos % (Auto) 3.8 Baso % (Auto) 0.3 Neut # (Auto) 5.1 Lymph # (Auto) 2.1 [place] # (Auto) 1.0 H Eos # (Auto) 0.3 Baso # (Auto) 0.0 Immature Gran % 0.2 Nucleated RBC % 0.0 Immature Gran # 0.02 Nucleated RBCs # 0.00 Sodium 148 H Potassium 3.6 Chloride 110 H Carbon Dioxide 29 Anion Gap 12.6 BUN 9 Creatinine 1.30 GFR Calculation 72 BUN/Creatinine Ratio 6.00 Glucose 129 H Calculated Osmolality 294.3 Calcium 8.1 L 10/16/16 16:33 WBC RBC Hgb 8.2 L Hct 24.5 L MCV MCH MCHC RDW Plt Count MPV Neut % (Auto) Lymph % (Auto) [place] % (Auto) Eos % (Auto) Baso % (Auto) Neut # (Auto) Lymph # (Auto) [place] # (Auto) Eos # (Auto) Baso # (Auto) Immature Gran % Nucleated RBC % Immature Gran # Nucleated RBCs # Sodium Potassium Chloride Carbon Dioxide Anion Gap BUN Creatinine GFR Calculation BUN/Creatinine Ratio Glucose Calculated Osmolality Calcium DS: Provider Date of admission: 10/13/16 14:37 Primary care physician: Willian Main MD Attending physician on admission: Sudhir Baca MD Consults: 10/13/16 14:46 Consult to Pharmacy [CONS] Routine Reason for Pharmacy Consult: Adjust Meds Renal Funct Discharging clinician: Shruthi Amaya NP Expected date of discharge: 10/17/16 <VidalSuri - Last Filed: 10/17/16 12:22> Hospital Course - Hospital Course Hospital Course: he will remain off his Plavix for 1 week. Diagnosis - Discharge Diagnosis (1) Anemia Status: Acute (2) Seizure disorder Status: Acute (3) Platelet inhibition due to Plavix Status: Acute (4) Acute blood loss anemia Status: Acute Discharge Plan - Discharge Data Condition at Discharge: Stable Discharge Diet: advance to your usual diet Contact your physician if you experience:: fever over 101, Bleeding - Forms/Instructions Additional Discharge Instructions: Hold plavix until 10/24/16 and start first dose on 10/25/16. follow up with PCP in 5-7 days Exam - Constitutional General appearance: no acute distress - Head Head exam: Present: normocephalic - Eye Eye exam: Present: EOMI Pupils: Present: NIRMALA - ENT ENT exam: Present: normal exam - Respiratory Respiratory exam: Present: clear to auscultation bilaterally - Cardiovascular Cardiovascular exam: Present: regular rate and rhythm - GI/Abdominal GI/Abdominal exam: Present: normal bowel sounds, soft - Extremities Exam Extremities exam: Present: full ROM - Neurological Exam Neurological exam: Present: alert, oriented X3, CN II-XII intact - Psychiatric Psychiatric exam: Present: normal affect, normal mood - Skin Skin exam: Present: warm, intact
[2016-10-17 11:52] VITALS: BP 150/101
== END 2016-10-17 14:30 | disposition home or self-care (01) | DRG 378 ==
LOC: N.ED 11:31 → N.EDINP 14:37 → SUATTDRO 14:37 → N.2E 15:39
PROVIDERS: ADMIT Internal Medicine; ATTEND Internal Medicine

== ENCOUNTER 2019-07-27 18:21 | Observation (INO) ==
[2019-07-27] MEDS ORDERED: SODIUM CHLORIDE 0.9% 1,000 ML IV STA (18:47)
[2019-07-27 19:07] LABS: Basophils % 0.4 % (0.0-0.8); Eosinophils # 0.3 10*3/uL (0.0-0.87); Eosinophils % 3.3 % (0.00-10.9); Hematocrit 36.8 VOL% (42.0-52.0); Hemoglobin 11.7 GM/DL (14.0-18.0); Immature Granulocytes % 0.3 %; Immature Granulocytes Absolute 0.03 #; Lymphocytes # 2.8 10*3/uL (1.4-4.0); Lymphocytes % 28.1 % (21.2-54.2); Mean Corpuscular HGB Conc 31.8 GM/DL (32-36); Mean Corpuscular Volume 75.3 FL (87-102); Mean Platelet Volume 9.9 FL (9.6-12.0); Monocytes % 10.1 % (1.7-12.7); Neutrophils % 57.8 % (38.7-73.9); Platelet Count 242 T/CUMM (130-400); Red Blood Count 4.89 MC/CUMM (3.8-5.5); White Blood Count 9.8 T/CUMM (4-12)
[2019-07-27 19:19] LABS: PT Patient Result 10.9 SECS (9.6-12.2)
[2019-07-27 19:26] LABS: Alanine Aminotransferase 17 U/L (16-61); Albumin 3.1 G/DL (3.4-5.0); Alkaline Phosphatase 82 U/L (45-117); Aspartate Amino Transferase 16 U/L (0-37); Bilirubin,Total < 0.39 MG/DL (0.2-1.0); Blood Urea Nitrogen 26 MG/DL (7-18); Calcium 9.1 MG/DL (8.5-10.1); Estimated Glom Filtration Rate 46 ML/MIN; Glucose 160 MG/DL (74-106); Total Protein 6.8 G/DL (6.4-8.3); Troponin I < 0.015 NG/ML (0.00-0.045)
[2019-07-27] MEDS ORDERED: ACETAMINOPHEN 325 MG TABLET PO PRN (20:48)
[2019-07-27] MEDS ORDERED: ONDANSETRON 4 MG/2 ML VIAL IV PRN (20:48)
[2019-07-27] MEDS ORDERED: DEXTROSE 50% 25 GM/50 ML VIAL IV PRN (20:48)
[2019-07-27] MEDS ORDERED: GLUCAGON 1 MG VIAL IM PRN (20:48)
[2019-07-27] MEDS: POTASSIUM CHLORIDE 20 MEQ TABLET PO PRN ×2 (21:09→23:28)
[2019-07-27] MEDS ORDERED: DIVALPROEX ER 500 MG TABLET PO SCH (22:00)
[2019-07-27] MEDS: SODIUM CHLORIDE 0.9% 1,000 ML IV SCH (22:00)
[2019-07-28] MEDS: POTASSIUM CHLORIDE 20 MEQ TABLET PO PRN ×2 (01:34→03:47)
[2019-07-28 02:11] LABS: Bacteria,Urine Occasional /HPF (Few); Bilirubin,Urine Negative (Negative); Blood, Urine NEGATIVE (Negative); Glucose,Urine (UA) Negative (Negative); Ketones,Urine Negative (Negative); Nitrite,Urine Negative (Negative); Protein,Urine Negative; RBC,Urine 1 /HPF (0-4); Urine Color Yellow (Yellow); Urine Specific Gravity 1.005 (1.001-1.035)
[2019-07-28 02:12] LABS: Apearance,Urine Clear (Clear); Urine Urobilinogen 0.2 EU/DL (0.2-1.0)
[2019-07-28 02:18] LABS: Barbiturates Screen,Urine Negative (Negative); Benzodiazepines Screen,Urine Negative (Negative); Cannabinoid Screen,Urine Positive (Negative); Opiate Screen,Urine Negative (Negative); Phencyclidine Screen,Urine Negative (Negative)
[2019-07-28 04:30] LABS: Basophils # 0.1 10*3/uL (0.0-0.2); Basophils % 0.6 % (0.0-0.8); Eosinophils # 0.4 10*3/uL (0.0-0.87); Eosinophils % 3.9 % (0.00-10.9); Hematocrit 34.3 VOL% (42.0-52.0); Hemoglobin 11.2 GM/DL (14.0-18.0); Immature Granulocytes % 0.4 %; Immature Granulocytes Absolute 0.04 #; Lymphocytes % 28.3 % (21.2-54.2); Mean Corpuscular HGB Conc 32.7 GM/DL (32-36); Mean Corpuscular Volume 74.7 FL (87-102); Mean Platelet Volume 10.5 FL (9.6-12.0); Monocytes % 11.7 % (1.7-12.7); Neutrophils % 55.1 % (38.7-73.9); Platelet Count 233 T/CUMM (130-400); Red Blood Count 4.59 MC/CUMM (3.8-5.5); Red Cell Distribution Width 15.6 % (9.3-17.3); White Blood Count 10.6 T/CUMM (4-12)
[2019-07-28 04:57] LABS: Alanine Aminotransferase 18 U/L (16-61); Albumin 2.8 G/DL (3.4-5.0); Alkaline Phosphatase 89 U/L (45-117); Aspartate Amino Transferase 17 U/L (0-37); Blood Urea Nitrogen 23 MG/DL (7-18); Calcium 8.6 MG/DL (8.5-10.1); Estimated Glom Filtration Rate 74 ML/MIN; Glucose 79 MG/DL (74-106); HDL Cholesterol 46 MG/DL (40-60); Osmolality,Calculated 285.1 MOS/KG (273-304); Risk Ratio 2.91; Thyroid Stimulating Hormone 0.559 uIU/ml (0.358-3.74); Total Protein 6.2 G/DL (6.4-8.3); Triglycerides 74 MG/DL (2-150); Troponin I < 0.015 NG/ML (0.00-0.045); VLDL CHOLESTEROL 14.8 MG/DL
[2019-07-28] MEDS ORDERED: CLOPIDOGREL 75 MG TABLET PO SCH (09:00)
[2019-07-28] MEDS ORDERED: PNEUMOCOCCAL VACCINE (13 VALENT) 0.5 ML SYRINGE IM ONE (09:00)
[2019-07-28 11:45] VITALS: BP 145/95
[2019-07-28] MEDS: SODIUM CHLORIDE 0.9% 1,000 ML IV SCH (12:19)
[2019-07-28] MEDS ORDERED: ATORVASTATIN 40 MG TABLET PO SCH (21:00)
== END 2019-07-28 12:38 | disposition home or self-care (01) ==
LOC: EDBD → EDUNIT# → N.ED 18:21 → N.EDINP 18:21 → N.TELEN 21:27
PROVIDERS: ADMIT Internal Medicine; ATTEND Internal Medicine